=== PATIENT | female | born 1990 | race Caucasian/White ===

== ENCOUNTER 2016-03-02 08:41 | Emergency (ER) | payer OTHER ==
[2016-03-02 08:50] VITALS: BP 108/70
--- NOTE | 2016-03-02 09:09 | ER Document Report ---
HPI - HPI Patient complains to provider of: pelvic pain and clear vaginal discharge Onset: Last week Onset/Duration: Gradual Quality of pain: Cramping Pain Level: 5 Context: 25-year-old female complaining of pelvic pain and clear vaginal discharge. She thinks she might be getting a vaginitis. Pain level is 5/5 but she is walking normally and states she has to go to work. History of chlamydia that was treated and bacterial vaginosis. She was seen by her primary care doctor 3 weeks ago and everything was negative. Symptoms started after she was seen. No fever or chills. No dysuria. No menses since November but the tests have been negative. Associated Symptoms: None Exacerbated by: Denies Relieved by: Denies Similar symptoms previously: Yes Recently seen / treated by doctor: No - ROS ROS below otherwise negative: Yes Systems Reviewed and Negative: Yes All other systems reviewed and negative - REPRODUCTIVE LMP: 02/05/16 - DERM Skin Color: Normal Past Medical History - General Information source: Patient - Social History Smoking Status: Never Smoker Chew tobacco use (# tins/day): No Frequency of alcohol use: Rare Drug Abuse: None Lives with: Family Family History: Reviewed & Not Pertinent Patient has suicidal ideation: No Patient has homicidal ideation: No - Medical History Medical History: Negative Past Surgical History: Reports: Hx Oral Surgery Vertical Provider Document - CONSTITUTIONAL Agree With Documented VS: Yes Exam Limitations: No Limitations - INFECTION CONTROL TRAVEL OUTSIDE OF THE [place] IN LAST 30 DAYS: No - HEENT HEENT: Normocephalic - NECK Neck: Supple - RESPIRATORY O2 Sat by Pulse Oximetry: 99 - MUSCULOSKELETAL/EXTREMETIES Musculoskeletal/Extremeties: ADITYA HERNANDEZ - NEURO Level of Consciousness: Awake, Alert, Appropriate Course - Vital Signs Vital signs: Temp Pulse Resp BP Pulse Ox 97.9 F 80 16 108/70 99 03/02/16 08:49 03/02/16 08:49 03/02/16 08:49 03/02/16 08:49 03/02/16 08:49
--- NOTE | 2016-03-02 09:21 | ER Document Report ---
HPI - HPI Patient complains to provider of: sore left shoulder Onset: Yesterday Onset/Duration: Worse - this am Quality of pain: Achy Pain Level: 5 Context: 25 yo female woke up with sore posterior left shoulder yesterday. worse today with movement. doesn't remember doing anything to make it worse. No radiculopathy or neck pain. Associated Symptoms: None Exacerbated by: Movement Relieved by: Denies - ROS ROS below otherwise negative: Yes Systems Reviewed and Negative: Yes All other systems reviewed and negative - REPRODUCTIVE LMP: 02/05/16 - DERM Skin Color: Normal Past Medical History - General Information source: Patient - Social History Smoking Status: Never Smoker Chew tobacco use (# tins/day): No Frequency of alcohol use: Rare Drug Abuse: None Lives with: Spouse/Significant other Family History: Reviewed & Not Pertinent Patient has suicidal ideation: No Patient has homicidal ideation: No - Medical History Medical History: Negative Surgical Hx: Negative Past Surgical History: Reports: Hx Oral Surgery Vertical Provider Document - CONSTITUTIONAL Agree With Documented VS: Yes Exam Limitations: No Limitations General Appearance: No Apparent Distress - INFECTION CONTROL TRAVEL OUTSIDE OF THE [place] IN LAST 30 DAYS: No - HEENT HEENT: Normocephalic - NECK Neck: Supple - tender left upper thoracic paraspinal muscles - RESPIRATORY Respiratory: Breath Sounds Normal, No Respiratory Distress O2 Sat by Pulse Oximetry: 99 - CARDIOVASCULAR Cardiovascular: Regular Rate, Regular Rhythm - BACK Back: Normal Inspection - tender left parascapular muscles - MUSCULOSKELETAL/EXTREMETIES Musculoskeletal/Extremeties: Tender - see above Course - Vital Signs Vital signs: Temp Pulse Resp BP Pulse Ox 97.9 F 80 16 108/70 99 03/02/16 08:49 03/02/16 08:49 03/02/16 08:49 03/02/16 08:49 03/02/16 08:49 Discharge - Discharge Clinical Impression: left thoracic back strain Condition: Good Disposition: HOME, SELF-CARE Instructions: Upper Back Strain ([facility]), Anti-Inflammatory Medication ([facility]), Oral Narcotic Medication ([facility]) Additional Instructions: warm compress to er if worse Prescriptions: Ibuprofen [Motrin 800 mg Tablet] 800 mg PO Q8HP PRN #30 tablet PRN Reason: Oxycodone HCl/Acetaminophen [Percocet 5-325 mg Tablet] 1 - 2 tab PO ASDIR PRN # 15 tablet PRN Reason: Forms: Return to Work
[2016-03-02] MEDS ORDERED: IBUPROFEN 800 MG TABLET PO ONE (09:40)
== END 2016-03-02 10:10 | disposition home or self-care (01) ==
LOC: ER 08:41
DX: S29.012A Strain of muscle and tendon of back wall of thorax, initial encounter (principal); M25.512 Pain in left shoulder; X58.XXXA Exposure to other specified factors, initial encounter
CPT/HCPCS: 99283